=== PATIENT | female | born 1950 | race Caucasian/White ===

== ENCOUNTER 2018-04-28 08:30 | Inpatient (IN) | payer OTHER ==
--- NOTE | 2018-04-28 08:59 | ED ---
Fall HPI - General Chief Complaint: Fall Stated Complaint: fall-[facility] Time Seen by Provider: 04/28/18 08:30 Source: patient Mode of arrival: EMS - History of Present Illness Initial Comments: This is a 67-year-old female who states she slipped on ice and fell onto her right hip just prior to admission. She was brought in by EMS she was given a total of 10 mg morphine sulfate she still has severe pain in the right hip area. She denies any head neck or back pain any other injuries. MD Complaint: fall - Related Data Home Medications Medication Instructions Recorded Confirmed Multivitamins, Thera [Multivitamin 1 tab PO DAILY 04/28/18 04/28/18 (formulary)] Allergies Allergy/AdvReac Type Severity Reaction Status Date / Time No Known Allergies Allergy Unverified 04/28/18 08:50 Review of Systems ROS Statement: Those systems with pertinent positive or pertinent negative responses have been documented in the HPI. ROS Other: All systems not noted in ROS Statement are negative. Past Medical History Past Medical History: No Reported History History of Any Multi-Drug Resistant Organisms: None Reported Past Surgical History: Section Past Psychological History: No Psychological Hx Reported Smoking Status: Former smoker Past Alcohol Use History: Daily Past Drug Use History: None Reported General Exam - General Exam Comments Initial Comments: This a well-developed sec appearing female who is awake alert oriented 3 Bureau Coma Scale of 15 Limitations: no limitations General appearance: alert, anxious, in distress Head exam: Present: atraumatic, normocephalic, normal inspection Eye exam: Present: normal appearance, PERRL, EOMI. Absent: scleral icterus, conjunctival injection, periorbital swelling ENT exam: Present: normal exam, mucous membranes moist Neck exam: Present: normal inspection. Absent: tenderness, meningismus, lymphadenopathy Respiratory exam: Present: normal lung sounds bilaterally. Absent: respiratory distress, wheezes, rales, rhonchi, stridor Cardiovascular Exam: Present: regular rate, normal rhythm, normal heart sounds. Absent: systolic murmur, diastolic murmur, rubs, gallop, clicks GI/Abdominal exam: Present: soft, normal bowel sounds. Absent: distended, tenderness, guarding, rebound, rigid Rectal exam: Present: deferred Extremities exam: Present: normal inspection, tenderness, normal capillary refill, other (Tenderness palpation of the right hip with no definite shortening or rotation.). Absent: full ROM, pedal edema, joint swelling, calf tenderness Back exam: Present: normal inspection Neurological exam: Present: alert, oriented X3, CN II-XII intact Psychiatric exam: Present: normal affect, normal mood Skin exam: Present: warm, dry, intact, normal color. Absent: rash Course Vital Signs 04/28/18 08:36 Temperature 99.0 F Pulse Rate 64 Respiratory 18 Rate Blood Pressure 150/76 O2 Sat by Pulse 93 L Oximetry Medical Decision Making - Medical Decision Making I did discuss findings with the patient as well as with Bambi who is the physician operating room assistant for Dr. Yan patient will be admitted with medical clearance by [facility]. - Radiology Data Radiology results: report reviewed (I did review the images and report or is evidence of displaced femoral neck fracture.), image reviewed Disposition Clinical Impression: Fall, Closed right hip fracture Disposition: ADMITTED IP TO THIS [facility] Condition: Stable Referrals: None,Stated [Primary Care Provider] - 1-2 days
[2018-04-28] MEDS ORDERED: fentaNYL (PF) 50 MCG/ML 2 ML AMP IV STA (09:29)
--- NOTE | 2018-04-28 09:35 | XR ---
EXAMINATION TYPE: XR Hip RT and AP Pelvis DATE OF EXAM: 04/28/2018 COMPARISON: NONE HISTORY: Pain TECHNIQUE: A single AP view of the pelvis is obtained. Two views of the right hip are obtained. FINDINGS: There is a displaced fracture involving the right femoral neck. Arthropathy of the left hi p noted. Bowel gas pattern nonspecific. IMPRESSION: 1. Displaced right femoral neck fracture.
--- NOTE | 2018-04-28 10:08 | XR ---
EXAMINATION TYPE: XR chest 1V DATE OF EXAM: 04/28/2018 COMPARISON: NONE HISTORY: Preop TECHNIQUE: Single frontal view of the chest is obtained. FINDINGS: Hyperinflation compatible COPD. Biapical pleural thickening. No consolidative process. Renée ear density left upper lobe is nonspecific and too small to characterize. No overt failure. Heart siz e normal. IMPRESSION: 1. COPD with biapical pleural thickening. There is a linear density within the left upper lobe which may be related atelectasis or scar. Recommend short-term follow-up CT scan.
[2018-04-28] MEDS ORDERED: NALOXONE 0.4 MG/ML 1 ML VIAL IV PRN (10:16)
--- NOTE | 2018-04-28 10:49 | CT ---
EXAMINATION TYPE: CT hip RT wo con DATE OF EXAM: 04/28/2018 COMPARISON: 04/28/2018 right hip radiograph. HISTORY: Fall with subsequent right hip pain CT DLP: 313.8 mGycm Automated exposure control for dose reduction was used. FINDINGS: There is redemonstration of the known intertrochanteric impacted right femoral fracture that is commi nuted with approximately 2.3 cm foreshortening at the medial fracture site and 1.3 cm distraction at the lateral fracture site. There is displacement of the most posterior fracture fragment 8 mm. There is apex lateral angulation of the primary fracture. Surrounding soft tissue swelling, osseous bone ma rrow abnormality likely related to bone marrow contusion, and fullness of the hip musculature that ma y relate to intramuscular edema or hematoma is seen. A small fat fluid level is seen at the greater t rochanter likely within the bursa from the right hip fracture. The acetabulum and remainder of the ri ght pelvis appear intact. There is at least grade 2 anterolisthesis of L5 on S1, partially visualized . Numerous sigmoid diverticula are also seen. Extensive atheromatous changes of the branches of the a bdominal aorta are noted. IMPRESSION: 1. COMMINUTED, FORESHORTENED, APEX LATERAL ANGULATED INTERTROCHANTERIC RIGHT HIP FRACTURE DESCRIBE D ABOVE WITH LATERAL FRACTURE SITE DISTRACTION. NO ADDITIONAL RIGHT PELVIC FRACTURE IS SEEN. 2. AT LEAST GRADE 2 ANTEROLISTHESIS OF L5 ON S1, PARTIALLY VISUALIZED.
[2018-04-28 11:18] LABS: Basophils % (A) 0 %; Eosinophils # (A) 0.1 k/uL (0-0.7); Eosinophils % (A) 1 %; HCT 38.3 % (34.0-46.0); HGB 12.6 gm/dL (11.4-16.0); Lymphocytes # (A) 1.1 k/uL (1.0-4.8); Lymphocytes % (A) 14 %; MCH 31.3 pg (25.0-35.0); MCHC 32.8 g/dL (31.0-37.0); MCV 95.3 fL (80.0-100.0); Mean Platelet Volume 7.5; Monocytes # (A) 0.4 k/uL (0-1.0); Monocytes % (A) 5 %; Neutrophils # (A) 5.9 k/uL (1.3-7.7); Neutrophils % (A) 78 %; Platelet Count 236 k/uL (150-450); RBC 4.02 m/uL (3.80-5.40); RDW 14.7 % (11.5-15.5); WBC 7.5 k/uL (3.8-10.6)
[2018-04-28] MEDS: HYDROmorphone 1 MG/ML 1 ML SYRINGE IVP PRN ×2 (11:23→15:42)
[2018-04-28] MEDS: SODIUM CHLORIDE 0.9% 1,000 ML IV SCH (11:23)
[2018-04-28 11:31] LABS: ALT 25 U/L (9-52); AST 24 U/L (14-36); Albumin 4.2 g/dL (3.5-5.0); Alkaline Phosphatase 76 U/L (38-126); Anion Gap 9 mmol/L; Blood Urea Nitrogen 17 mg/dL (7-17); Calcium 9.7 mg/dL (8.4-10.2); Carbon Dioxide 24 mmol/L (22-30); Chloride 107 mmol/L (98-107); Glucose 108 mg/dL (74-99); Magnesium 1.8 mg/dL (1.6-2.3); Potassium 4.4 mmol/L (3.5-5.1); Sodium 140 mmol/L (137-145); Total Bilirubin 0.4 mg/dL (0.2-1.3)
[2018-04-28 11:41] LABS: INR 1.1 (<1.2); Partial Thromboplastin Time 24.7 sec (22.0-30.0); Prothrombin Time 11.5 sec (9.0-12.0)
[2018-04-28 11:57] LABS: Creatine Kinase 48 U/L (30-135)
--- NOTE | 2018-04-28 11:57 | P.CONS ---
History of Present Illness - Reason for Consult Consult date: 04/28/18 Medical clearance - Chief Complaint Status post fall - History of Present Illness Patient is 67-year-old female with a known history of smoking quit about 5 years ago was brought to the ER by EMS status post fall. Patient says that she was at the shop and tripped over a wire and fell down on her right hip. Patient has been having severe pain since then and patient was given a dose of morphine sulfate by EMS. Denied any neck pain or headache. Denied any head injury. Denied any complaints of chest pain or shortness of breath. No complaints of dizziness or lightheadedness before or after the fall. No fever no chills. Denied any recent illnesses. No history of renal problems. No recent medical problems. No recent travel or sick contacts. X-ray of the hip showed displaced right femoral neck fracture. Chest x-ray showed COPD with by apical pleural thickening. There is a linear density within the left upper lobe which may be related to atelectasis or scar. Recommend short-term follow-up computed tomography scan. CT of the right hip showed comminuted, foreshortened, apical lateral angular intertrochanteric right hip fracture. No additional right pelvic fracture is seen. At least a grade 2 and 2 listhesis of the L5 on S1 particularly visualized. Review of Systems Constitutional: Patient denies any fever or chills . No generalized weakness or weight loss. Abdomen: Patient denied nausea vomiting and diarrhea and abdominal pain. Cardiovascular: Patient denies any chest pain or short of breath no palpitations. Respiratory: patient denied any cough is from production. No shortness of breath Neurologic: Patient denied any numbness or tingling headache. Musculoskeletal: Right hip pain. Decreased range of motion. Skin: Negative Psychiatric: Anxious Endocrine: No heat or cold intolerance. No recent weight gain. Genitourinary: No dysuria or hematuria. All other 14 point ROS negative except the above Past Medical History Past Medical History: No Reported History History of Any Multi-Drug Resistant Organisms: None Reported Past Surgical History: Section Past Anesthesia/Blood Transfusion Reactions: No Reported Reaction Additional Past Anesthesia/Blood Transfusion Reaction / Comm: Pt has only had a Smoking Status: Former smoker - Past Family History Father History Unknown: Yes Mother Additional Family Medical History / Comment(s): Mother had back surgery and 10 days later she . Medications and Allergies Home Medications Medication Instructions Recorded Confirmed Type Multivitamins, Thera [Multivitamin 1 tab PO DAILY 04/28/18 04/28/18 History (formulary)] Allergies Allergy/AdvReac Type Severity Reaction Status Date / Time No Known Allergies Allergy Unverified 04/28/18 08:50 Physical Exam Vitals: Vital Signs Temp Pulse Resp BP Pulse Ox 04/28/18 11:06 99.0 F 61 18 145/64 94 L 04/28/18 10:57 61 18 145/64 94 L 04/28/18 08:36 99.0 F 64 18 150/76 93 L Intake and Output 04/27/18 04/28/18 04/28/18 22:59 06:59 14:59 Other: Weight 54.431 kg PHYSICAL EXAMINATION: Patient is lying in the bed comfortably, no acute distress, awake alert and oriented.. HEENT: Normocephalic. Neck is supple. Pupils reactive. Nostrils clear. Oral cavity is moist. Ears reveal no drainage. Neck reveals no JVD, carotid bruits, or thyromegaly. CHEST EXAMINATION: Trachea is central. Symmetrical expansion. Bilateral air movement is present but prolonged. No wheezing. No crackles. CARDIAC: Normal S1, S2 with no gallops. No murmurs ABDOMEN: Soft. Bowel sounds normal. No organomegaly. No abdominal bruits. Extremities: reveal no edema. Patient does have clubbing of fingers. No cyanosis Neurologically awake, alert, oriented x3 with well-coordinated movements. No focal deficits noted Skin: No rash or skin lesions. Psychiatric: Coperative. Nonsuicidal. Anxious. Musculoskeletal: Right hip tenderness and decreased range of motion. Patient does have proximal metacarpophalangeal joint arthritic changes.. Results Results: Status post mechanical fall and right hip CBC & Chem 7: 04/28/18 10:50 04/28/18 10:50 Labs: Abnormal Lab Results - Last 24 Hours (Table) 04/28/18 Range/Units 10:50 Creatinine 0.51 L (0.52-1.04) mg/dL Glucose 108 H (74-99) mg/dL Assessment and Plan Assessment: Status post mechanical fall and right femoral neck fracture. Displaced, committed right femoral neck fracture. Possible COPD. No history of pulmonary function tests in the past. Not in exacerbation. Elevated blood pressure likely due to pain. Follow-up as an outpatient. Linear density in the left lung upper lobe. Outpatient follow-up with pulmonary was recommended. History of smoking quit 5 years ago DVT prophylaxis Plan: 67-year-old female was admitted to the hospital due to mechanical fall and right femoral neck fracture. No active complaints of chest pain or shortness of breath. No history of CVA/TIA or chronic kidney disease. Patient does not have any shortness of breath with ambulation. Quit smoking about 5 years ago. Patient does have underlying COPD as per chest x-ray.. Otherwise patient is at low risk for low risk orthopedic surgery. We will continue to follow with you. Thank you for your consult. Time with Patient: Greater than 30
[2018-04-28 12:10] LABS: Creatine Kinase MB 1.2 ng/mL (0.0-2.4); Troponin I <0.012 ng/mL (0.000-0.034)
[2018-04-28] MEDS: ONDANSETRON 4 MG/2 ML VIAL IVP PRN (13:09)
[2018-04-28] MEDS: HEPARIN SODIUM,PORCINE 5,000 UNIT/ML 1 ML VIAL SQ SCH ×2 (15:41→15:48)
[2018-04-28] MEDS: MORPHINE SULFATE 4 MG/ML SYRINGE IVP PRN (19:47)
[2018-04-28] MEDS: METOCLOPRAMIDE 5 MG/ML 2 ML VIAL IVP PRN (19:54)
--- NOTE | 2018-04-28 19:59 | P.HPOR ---
History of Present Illness H&P Date: 04/28/18 Chief Complaint: Right hip pain status-post fall Ms. Boyd is a pleasant, 67-year-old female who experienced a mechanical fall earlier today while at work. She states she tripped over an electrical cord and fell onto her right side. She was brought to the emergency department at [facility] where x-rays were obtained which revealed a fracture of the right hip. She localizes the pain to the right hip and denies other injuries associated with this fall nor previous injury to the hip. She denies head trauma or loss of consciousness. She lives alone and normally ambulates without the use of assistive devices. Review of Systems Constitutional: Denies chills, Denies fever Eyes: denies loss of vision Ears: deny: decreased hearing Cardiovascular: Denies chest pain, Denies shortness of breath Respiratory: Reports cough (Prior emphysema - uses an inhaler occasionally (but rarely).) Gastrointestinal: Denies abdominal pain Genitourinary: Denies difficulty voiding Musculoskeletal: Reports as per HPI, Denies frequent falls, Denies leg numbness/ tingling Integumentary: Denies rash Neurological: Denies balance difficulties, Denies sensory deficit Endocrine: Denies high blood sugars Hematologic/Lymphatic: Denies easy bleeding Past Medical History Past Medical History: No Reported History History of Any Multi-Drug Resistant Organisms: None Reported Past Surgical History: Section Past Anesthesia/Blood Transfusion Reactions: No Reported Reaction Additional Past Anesthesia/Blood Transfusion Reaction / Comment(s): Pt has only had a Smoking Status: Former smoker - Past Family History Father History Unknown: Yes Mother Additional Family Medical History / Comment(s): Mother had back surgery and 10 days later she . Medications and Allergies Home Medications Medication Instructions Recorded Confirmed Type Multivitamins, Thera [Multivitamin 1 tab PO DAILY 04/28/18 04/28/18 History (formulary)] Allergies Allergy/AdvReac Type Severity Reaction Status Date / Time No Known Allergies Allergy Unverified 04/28/18 08:50 Physical Examination HEENT: Normocephalic and atraumatic. Cardiovascular: Regular rate and rhythm. Pulmonary: No audible wheeze or conversational dyspnea Abdomen: Soft & nontender Musculoskeletal: Moderate tenderness to palpation on the lateral aspect of the right hip. There is no erythema, ecchymosis or abrasions. The right lower extremity is short and externally rotated. She demonstrates pain with logroll. There is no tenderness with palpation of the knee, leg, foot or ankle. Light touch sensation is subjectively intact throughout the right leg and symmetric to the contralateral side. Dorsalis pedis pulses 2+ and the foot is warm dry and well perfused. Secondary survey reveals no gross long bone abnormalities or deformity. No tenderness to palpation or passive range of motion of the left lower extremity and bilateral upper extremities. The pelvis is stable to AP and lateral compression. Results X-rays and computed tomography scan of the right hip were reviewed. These demonstrate a displaced intertrochanteric femur fracture with a moderately large posteromedial fragment. Mild comminution of the greater trochanter is noted. The primary fracture line extends to the level of the lesser trochanter. - Labs Labs: Abnormal Lab Results - Last 24 Hours (Table) 04/28/18 Range/Units 10:50 Creatinine 0.51 L (0.52-1.04) mg/dL Glucose 108 H (74-99) mg/dL H & H 04/28/18 Range/Units 10:50 Hgb 12.6 (11.4-16.0) gm/dL Hct 38.3 (34.0-46.0) % Coagulation 04/28/18 Range/Units 10:50 INR 1.1 (<1.2) Result Diagrams: 04/28/18 10:50 04/28/18 10:50 Assessment and Plan Assessment: Displaced, right intertrochanteric femur fracture (1) Intertrochanteric fracture of right hip Current Visit: Yes Status: Acute Code(s): S72.141A - DISPLACED INTERTROCHANTERIC FRACTURE OF RIGHT FEMUR, INIT SNOMED Code(s): 392688175 (2) Fall Current Visit: Yes Status: Acute Code(s): W19.XXXA - UNSPECIFIED FALL, INITIAL ENCOUNTER SNOMED Code(s): 4339160 Plan: I reviewed the diagnosis and clinical findings with Mrs. Boyd. We discussed the pertinent anatomy of the fracture. I explained that this fracture is best treated with operative intervention and I recommended surgical stabilization with a cephalomedullary nail. We discussed the operative plan and expected postoperative course. Risks and benefits were reviewed including (but not limited to) the risks of bleeding, infection, wound healing problems, blood clots, anesthesia related complications and . Questions were invited and answered. She expressed understanding and wishes to proceed with surgery. We will continue with oral and IV analgesics as needed. She will be kept on bedrest and placed on DVT prophylaxis. The patient will be made NPO after midnight with the plan for surgical stabilization tomorrow.
[2018-04-28] MEDS: FAMOTIDINE 20 MG TAB PO SCH (20:01)
[2018-04-28 20:24] LABS: Appearance,Urine Clear (Clear); Bilirubin,Urine Negative (Negative); Blood,Urine Negative (Negative); Color,Urine Yellow; Glucose,Urine (UA) Negative (Negative); Ketones,Urine 1+ (Negative); Leukocyte Esterase,Urine Negative (Negative); Nitrite,Urine Negative (Negative); Protein,Urine Negative (Negative); Specific Gravity,Urine 1.015 (1.001-1.035); Urobilinogen,Urine <2.0 mg/dL (<2.0)
[2018-04-29] MEDS: MORPHINE SULFATE 4 MG/ML SYRINGE IVP PRN ×4 (00:09→11:50)
[2018-04-29] MEDS: FAMOTIDINE 20 MG TAB PO SCH ×2 (08:21→19:55)
[2018-04-29] MEDS: MULTIVITAMINS, THERA 1 EACH TAB PO SCH (08:21)
[2018-04-29] MEDS: SODIUM CHLORIDE 0.9% 1,000 ML IV SCH (11:53)
[2018-04-29] MEDS ORDERED: IV FLUID CONTINUATION 650 ML IV ONE (12:21)
[2018-04-29] MEDS: ONDANSETRON 4 MG/2 ML VIAL IVP PRN (12:41)
[2018-04-29] MEDS ORDERED: ceFAZolin IN SWFI 2 GM/20 ML SYRINGE IVP ONE (13:00)
[2018-04-29] MEDS ORDERED: PROPOFOL 10 MG/ML 20 ML VIAL IV ONE (13:58)
[2018-04-29] MEDS ORDERED: KETAMINE 10 MG/ML 20 ML VIAL ONE (13:58)
[2018-04-29] MEDS ORDERED: fentaNYL (PF) 50 MCG/ML 2 ML AMP ONE (13:58)
[2018-04-29] MEDS ORDERED: MIDAZOLAM 2 MG/2 ML VIAL ONE (13:58)
[2018-04-29] MEDS ORDERED: PHENYLEPHRINE-0.9% NACL SYG 1 MG/10 ML SYRINGE ONE (13:58)
[2018-04-29] MEDS ORDERED: LACTATED RINGERS 1,000 ML IV ONE ×2 (14:39)
[2018-04-29] MEDS ORDERED: BUPIVACAINE-EPI 0.5%-1:200,000 10 ML VIAL SQ ONE (15:39)
--- NOTE | 2018-04-29 15:44 | XR ---
Limited right hip HISTORY: Hardware placement, open reduction internal fixation right hip 2 intraoperative views of the right hip submitted documenting the procedure.
--- NOTE | 2018-04-29 15:49 | FL ---
Fluoroscopy HISTORY: Hip fracture 1 minute 49 seconds fluoroscopy time supplied to the referring clinician. 2 intraoperative C-arm jorge l ges document the procedure. See dictated report from orthopedic surgery.
[2018-04-29 16:24] VITALS: BMI 18.8
[2018-04-29 18:24] LABS: Basophils % (A) 0 %; Eosinophils % (A) 1 %; HCT 34.1 % (34.0-46.0); HGB 11.2 gm/dL (11.4-16.0); Lymphocytes # (A) 1.2 k/uL (1.0-4.8); Lymphocytes % (A) 14 %; MCH 32.4 pg (25.0-35.0); MCHC 32.8 g/dL (31.0-37.0); MCV 98.9 fL (80.0-100.0); Mean Platelet Volume 7.8; Monocytes # (A) 0.7 k/uL (0-1.0); Monocytes % (A) 8 %; Neutrophils # (A) 6.4 k/uL (1.3-7.7); Neutrophils % (A) 75 %; Platelet Count 186 k/uL (150-450); RBC 3.45 m/uL (3.80-5.40); RDW 14.6 % (11.5-15.5); WBC 8.5 k/uL (3.8-10.6)
--- NOTE | 2018-04-29 19:49 | XR ---
EXAMINATION TYPE: XR Hip Limited RT DATE OF EXAM: 04/29/2018 COMPARISON: 04/28/2018 HISTORY: Postop TECHNIQUE: Single view FINDINGS: There is right hip nailing fixing the intertrochanteric fracture right femur in anatomic po sition. IMPRESSION: No complicating process seen.
[2018-04-29] MEDS: ceFAZolin IN SWFI 2 GM/20 ML SYRINGE IVP SCH (22:45)
[2018-04-30 07:12] LABS: Glucose,Whole Blood 88 mg/dL (75-99)
[2018-04-30] MEDS: ONDANSETRON 4 MG/2 ML VIAL IVP PRN (07:28)
[2018-04-30] MEDS: ceFAZolin IN SWFI 2 GM/20 ML SYRINGE IVP SCH (09:07)
[2018-04-30] MEDS: FAMOTIDINE 20 MG TAB PO SCH ×2 (10:49→21:13)
[2018-04-30] MEDS: METOCLOPRAMIDE 5 MG/ML 2 ML VIAL IVP PRN (10:49)
[2018-04-30] MEDS: ENOXAPARIN 40 MG/0.4 ML SYRINGE SQ SCH (10:49)
[2018-04-30] MEDS: SODIUM CHLORIDE 0.9% 1,000 ML IV SCH (21:13)
[2018-04-30] MEDS: MULTIVITAMINS, THERA 1 EACH TAB PO SCH (21:13)
--- NOTE | 2018-04-30 21:44 | P.PN ---
<RajanRyan - Last Filed: 04/30/18 21:42> Subjective Progress Note Date: 04/30/18 Principal diagnosis: Right IT fracture Patient is seen at bedside this morning. She is postop day #1 from right IT nail for right IT fracture. She has pain at the surgical site as expected but denies any new complaints. She denies numbness, tingling or calf pain. Review of systems is negative for fever, chills, chest pain, shortness of breath or other Objective - Vital Signs Vital signs: Vital Signs Temp 98.6 F 04/30/18 19:50 Pulse 79 04/30/18 19:50 Resp 18 04/30/18 19:50 BP 104/63 04/30/18 19:50 Pulse Ox 96 04/30/18 19:50 Intake & Output 04/30/18 04/30/18 05/01/18 06:59 18:59 06:59 Intake Total 60 Output Total 400 Balance -340 Intake: Intake, IV Titration 60 Amount Sodium Chloride 0.9% 1, 60 000 ml @ 20 mls/hr IV . Q24H [facility] Rx#:[id number] Output: Urine 400 Other: Voiding Method Indwelling Catheter Indwelling Catheter - Exam Inspection reveals a benign surgical wound. There is no active bleeding or drainage. Neurovascular status is intact throughout the lower extremity with motor and sensation fully intact. Calf is soft and nontender. 2+ dorsalis pedis pulse and less than 2 second cap refill is present. - Constitutional General appearance: Present: no acute distress - Labs CBC & Chem 7: 04/29/18 17:28 04/28/18 10:50 Assessment and Plan (1) Intertrochanteric fracture of right hip Narrative/Plan: She will continue with routine postop orthopedic protocol including pain management, wound care, PT, DVT prophylaxis and medical management. Expect that she will transfer to home in next few days. Current Visit: Yes Status: Acute Code(s): S72.141A - DISPLACED INTERTROCHANTERIC FRACTURE OF RIGHT FEMUR, INIT SNOMED Code(s): 368697594 Time with Patient: Less than 30 <Jj Yan - Last Filed: 05/01/18 20:49> Objective - Vital Signs Vital signs: Vital Signs Temp 98.4 F 05/01/18 19:25 Pulse 88 05/01/18 19:25 Resp 18 05/01/18 19:25 BP 97/61 05/01/18 19:25 Pulse Ox 94 L 05/01/18 19:25 Intake & Output 05/01/18 05/01/18 05/02/18 06:59 18:59 06:59 Intake Total 940 Output Total 700 200 Balance 240 -200 Intake: Intake, IV Titration 200 Amount Sodium Chloride 0.9% 1, 200 000 ml @ 20 mls/hr IV . Q24H [facility] Rx#:[id number] Oral 740 Output: Urine 700 200 Uretheral (Candelaria) 700 200 Other: Voiding Method Indwelling Catheter Indwelling Catheter # Voids 1 - Labs CBC & Chem 7: 05/01/18 13:27 04/28/18 10:50 Labs: Abnormal Lab Results - Last 24 Hours (Table) 05/01/18 Range/Units 13:27 RBC 3.30 L (3.80-5.40) m/uL Hgb 10.3 L (11.4-16.0) gm/dL Hct 32.1 L (34.0-46.0) % Assessment and Plan (1) Intertrochanteric fracture of right hip Current Visit: Yes Status: Acute Priority: Medium Code(s): S72.141A - DISPLACED INTERTROCHANTERIC FRACTURE OF RIGHT FEMUR, INIT SNOMED Code(s): 381419535 (2) Fall Current Visit: Yes Status: Acute Code(s): W19.XXXA - UNSPECIFIED FALL, INITIAL ENCOUNTER SNOMED Code(s): 6763625 Plan: Reviewed and agree with above. Patient was also subsequently seen and examined by me. S: Patient reports minimal postop pain - says she's hardly need any pain medicine. Was up with PT - was able to WB on operative leg without difficulty. Denies new issues or concerns. PE - RLE: Dressings clean/dry/intact. No shadowing. Minimal/appropriate pain with logroll. Intact light touch sensation distally. +DF/PF. Calf soft/NT. Foot is warm and dry Assessment: Right IT fracture s/p IMN Plan: Continue PRN pain managment. DVT prophylaxis w/LMWH. DC candelaria. PT - WBAT w/ rolling walker and assist. Discharge planning. Jj Yan D.O.
--- NOTE | 2018-04-30 22:04 | P.OP ---
Date of Procedure: 04/29/18 Preoperative Diagnosis: Right intertrochanteric femur fracture Postoperative Diagnosis: Right intertrochanteric femur fracture Procedure(s) Performed: Closed reduction and internal fixation of right intertrochanteric femur fracture with cephalomedullary nail Implants: Synthes TFN short 11 mm nail, 130 degree with an 85 mm spiral blade and a 5 mm distal locking screw. Anesthesia: spinal Surgeon: Jj Yan Estimated Blood Loss (ml): 50 Pathology: none sent Condition: stable Disposition: PACU Indications for Procedure: The patient is a 67 -year-old female who sustained a ground-level fall which resulted in a displaced right intertrochanteric femur fracture. Operative treatment was recommended. Risks & benefits were discussed including (but not limited to) the risk of infection, bleeding, injury to vessels/nerves/adjacent structures, interoperative fracture, nonunion, malunion, painful hardware & need for additional surgery. Patient's questions were answered. Patient expressed understanding and wished to proceed with surgical fixation of the fracture. Description of Procedure: After informed consent was obtained, the patient was brought to the operative suite by the anesthesia team and spinal anesthesia was administered. The patient was then transferred to a fracture table and positioned supine with the operative limb in a well-padded boot, secured with coban. The contralateral limb was flexed, abducted and secured to a padded, well-leg krueger. All bony prominences were padded in the typical fashion. A time-out was performed to confirm patient identifiers, side, site and procedure. All team members expressed agreement. The fracture was manually reduced (and confirmed with orthogonal fluoroscopy images). Preoperative antibiotics were given. At this point, the right lower extremity was prepped and draped in a sterile fashion. A small stab incision was made proximal to the greater trochanter and a guidewire inserted. Fluoroscopy was used to localize the starting point at the tip of the greater trochanter and the wire was advanced into the proximal femur. The skin incision was extended to accommodate the entry reamer which was inserted through a tissue protector and advanced to the level of the lesser trochanter. The reamer and guidewire were removed. Based on preoperative radiographs & intraoperative fracture reduction, an 11 mm x 130 degree short nail was selected, attached to the insertion handle and passed down the medullary canal. An incision was made laterally along the proximal thigh for placement of the cephalomedullary spiral blade. A drill sleeve was inserted down to the lateral femoral cortex. A guidewire was advanced through the nail and into the femoral head. Position of the wire within the head was checked on orthogonal views and adjusted to satisfactory alignment. Measuring off the guidewire, an 85 mm spiral blade was selected and inserted to the appropriate depth. The set screw was tightened to lock the blade in place then loosened enough to allow dynamic compression at the fracture site. Manual compression was applied through the insertion cannula. Compression at the fracture site was confirmed on imaging. Another incision was made for insertion of the distal locking screw. The drill sleeve was advanced to the lateral femoral cortex. The bone was drilled, measured and a 5 mm distal cortical screw was inserted. The jig was removed. Final x-rays were taken to confirm final fracture reduction and implant position. All wounds were irrigated thoroughly. The wounds were closed in layers : the fascia with 0-Vicryl, the subcutaneous tissue with 2-0 Vicryl and the skin closed with pierre. The incision sites were injected with local anaesthetic with epinephrine for postoperative pain control and hemostasis. Sterile dressings were applied. All sponge & needle counts were correct at the end of the procedure. The patient tolerated the procedure well. She was transferred to a hospital bed and transported to the PACU in stable condition.
[2018-05-01] MEDS: MULTIVITAMINS, THERA 1 EACH TAB PO SCH (09:36)
[2018-05-01] MEDS: FAMOTIDINE 20 MG TAB PO SCH ×2 (09:36→20:17)
[2018-05-01] MEDS: HYDROcodone/APAP 5-325MG 1 EACH TAB PO PRN ×2 (09:36→21:09)
[2018-05-01] MEDS: ENOXAPARIN 40 MG/0.4 ML SYRINGE SQ SCH (09:36)
[2018-05-01] MEDS: SODIUM CHLORIDE 0.9% 1,000 ML IV SCH (12:20)
--- NOTE | 2018-05-01 13:09 | P.PN ---
<RajanRyan - Last Filed: 05/01/18 13:08> Subjective Progress Note Date: 05/01/18 Principal diagnosis: Right IT fracture Patient is seen at bedside this morning. She is postop day #2 from right IT nail for right IT fracture. She has pain at the surgical site as expected but denies any new complaints. She denies numbness, tingling or calf pain. Review of systems is negative for fever, chills, chest pain, shortness of breath or other Objective - Vital Signs Vital signs: Vital Signs Temp 98.4 F 05/01/18 07:40 Pulse 78 05/01/18 07:40 Resp 16 05/01/18 07:40 BP 112/56 05/01/18 07:40 Pulse Ox 98 05/01/18 07:40 Intake & Output 04/30/18 05/01/18 05/01/18 18:59 06:59 18:59 Intake Total 940 Output Total 700 Balance 240 Intake: Intake, IV Titration 200 Amount Sodium Chloride 0.9% 1, 200 000 ml @ 20 mls/hr IV . Q24H [facility] Rx#:[id number] Oral 740 Output: Urine 700 Uretheral (Hernandez) 700 Other: Voiding Method Indwelling Catheter Indwelling Catheter Indwelling Catheter - Exam Inspection reveals a benign surgical wound. There is no active bleeding or drainage. Neurovascular status is intact throughout the lower extremity with motor and sensation fully intact. Calf is soft and nontender. 2+ dorsalis pedis pulse and less than 2 second cap refill is present. - Constitutional General appearance: Present: no acute distress - Labs CBC & Chem 7: 04/29/18 17:28 04/28/18 10:50 Assessment and Plan (1) Intertrochanteric fracture of right hip Narrative/Plan: She will continue with routine postop orthopedic protocol including pain management, wound care, PT, DVT prophylaxis and medical management. Expect that she will transfer to home in next few days. Current Visit: Yes Status: Acute Priority: Medium Code(s): S72.141A - DISPLACED INTERTROCHANTERIC FRACTURE OF RIGHT FEMUR, INIT SNOMED Code(s): 730027330 Time with Patient: Less than 30 <Jj Yan - Last Filed: 05/01/18 21:16> Objective - Vital Signs Vital signs: Vital Signs Temp 98.4 F 05/01/18 19:25 Pulse 88 05/01/18 19:25 Resp 18 05/01/18 19:25 BP 97/61 05/01/18 19:25 Pulse Ox 94 L 05/01/18 19:25 Intake & Output 05/01/18 05/01/18 05/02/18 06:59 18:59 06:59 Intake Total 940 Output Total 700 200 Balance 240 -200 Intake: Intake, IV Titration 200 Amount Sodium Chloride 0.9% 1, 200 000 ml @ 20 mls/hr IV . Q24H [facility] Rx#:[id number] Oral 740 Output: Urine 700 200 Uretheral (Hernandez) 700 200 Other: Voiding Method Indwelling Catheter Indwelling Catheter # Voids 1 - Labs CBC & Chem 7: 05/01/18 13:27 04/28/18 10:50 Labs: Abnormal Lab Results - Last 24 Hours (Table) 05/01/18 Range/Units 13:27 RBC 3.30 L (3.80-5.40) m/uL Hgb 10.3 L (11.4-16.0) gm/dL Hct 32.1 L (34.0-46.0) % Assessment and Plan (1) Intertrochanteric fracture of right hip Current Visit: Yes Status: Acute Priority: Medium Code(s): S72.141A - DISPLACED INTERTROCHANTERIC FRACTURE OF RIGHT FEMUR, INIT SNOMED Code(s): 224635925 (2) Fall Current Visit: Yes Status: Acute Code(s): W19.XXXA - UNSPECIFIED FALL, INITIAL ENCOUNTER SNOMED Code(s): 6327614 Plan: Reviewed and agree with above. Patient was also subsequently seen and examined by me. S: Patient reports pain is well-controlled. Walked to hallway w/PT. Denies fever/ chills/N/V. O: PE - RLE: Dressings clean/dry/intact. Appropriate TTP No ecchymosis. Calf soft. Foot warm & well-perfused PT: 10' A: POD #2 s/p IMN - Right IT fracture Plan: Continue PT - WBAT w/rolling walker and assist. DVT prophylaxis w/[facility]. Discharge planning in progress - likely DC home tomorrow once final arrangements made. Jj Yan D.O.
[2018-05-01 13:46] LABS: Basophils % (A) 0 %; Eosinophils # (A) 0.1 k/uL (0-0.7); Eosinophils % (A) 1 %; HCT 32.1 % (34.0-46.0); HGB 10.3 gm/dL (11.4-16.0); Lymphocytes % (A) 12 %; MCH 31.2 pg (25.0-35.0); MCV 97.4 fL (80.0-100.0); Mean Platelet Volume 7.9; Monocytes # (A) 0.5 k/uL (0-1.0); Monocytes % (A) 7 %; Neutrophils # (A) 6.6 k/uL (1.3-7.7); Neutrophils % (A) 79 %; Platelet Count 197 k/uL (150-450); WBC 8.4 k/uL (3.8-10.6)
[2018-05-01] MEDS: ONDANSETRON 4 MG/2 ML VIAL IVP PRN (17:18)
--- NOTE | 2018-05-01 23:13 | P.PN ---
Subjective Progress Note Date: 04/29/18 Principal diagnosis: right femoral neck fracture status post IM nail Patient is 67-year-old female with a known history of smoking quit about 5 years ago was brought to the ER by EMS status post fall. Patient says that she was at the shop and tripped over a wire and fell down on her right hip. Patient has been having severe pain since then and patient was given a dose of morphine sulfate by EMS. Denied any neck pain or headache. Denied any head injury. Denied any complaints of chest pain or shortness of breath. No complaints of dizziness or lightheadedness before or after the fall. No fever no chills. Denied any recent illnesses. No history of renal problems. No recent medical problems. No recent travel or sick contacts. X-ray of the hip showed displaced right femoral neck fracture. Chest x-ray showed COPD with by apical pleural thickening. There is a linear density within the left upper lobe which may be related to atelectasis or scar. Recommend short-term follow-up computed tomography scan. CT of the right hip showed comminuted, foreshortened, apical lateral angular intertrochanteric right hip fracture. No additional right pelvic fracture is seen. At least a grade 2 and 2 listhesis of the L5 on S1 particularly visualized. 04/29/2018 Patient underwent closed reduction with IM nailing today. Currently seems very drowsy. Otherwise denied any chest pain or shortness of breath. Pain is fairly controlled. No fever no chills. Current medications reviewed. Objective - Vital Signs Vital signs: Vital Signs Temp 99.5 F 04/29/18 12:27 Pulse 81 04/29/18 12:27 Resp 16 04/29/18 12:27 BP 132/79 04/29/18 12:27 Pulse Ox 92 L 04/29/18 12:27 Intake & Output 04/28/18 04/29/18 04/29/18 18:59 06:59 18:59 Intake Total 982 043 6349 Output Total 650 450 Balance 880 -490 600 Weight 54.431 kg Intake: IV 1050 Intake, IV Titration 80 160 Amount Sodium Chloride 0.9% 1, 80 000 ml @ 20 mls/hr IV . Q24H [facility] Rx#:[id number] ceFAZolin 2 gm In Sodium 160 Chloride 0.9% 50 ml @ 100 mls/hr IVPB ONCE ONE Rx# :[id number] Oral 800 Output: Urine 650 400 Estimated Blood Loss 50 Other: Voiding Method Bedpan Indwelling Catheter - Exam PHYSICAL EXAMINATION: Patient is lying in the bed comfortably, no acute distress, awake alert and oriented.. HEENT: Normocephalic. Neck is supple. Pupils reactive. Nostrils clear. Oral cavity is moist. Ears reveal no drainage. Neck reveals no JVD, carotid bruits, or thyromegaly. CHEST EXAMINATION: Trachea is central. Symmetrical expansion. Lung gomes clear to auscultation and percussion. CARDIAC: Normal S1, S2 with no gallops. No murmurs ABDOMEN: Soft. Bowel sounds normal. No organomegaly. No abdominal bruits. Extremities: reveal no edema. No clubbing or cyanosis Neurologically awake, alert, oriented x3 with well-coordinated movements. No focal deficits noted Skin: No rash or skin lesions. Psychiatric: Coperative. Nonsuicidal Musculoskeletal: No joint swelling or deformity. . - Labs CBC & Chem 7: 05/01/18 13:27 04/28/18 10:50 Labs: Abnormal Lab Results - Last 24 Hours (Table) 04/28/18 Range/Units 20:13 Urine Ketones 1+ H (Negative) Assessment and Plan Assessment: mechanical fall and right femoral neck fracture status post closed reduction with IM nail on 04/29/2018. Displaced, committed right femoral neck fracture. Possible COPD. No history of pulmonary function tests in the past. Not in exacerbation. Elevated blood pressure likely due to pain. Follow-up as an outpatient. Linear density in the left lung upper lobe. Outpatient follow-up with pulmonary was recommended. History of smoking quit 5 years ago DVT prophylaxis Plan: Patient will be continued on pain medications and bowel regimen. Encourage ambulation and incentive spirometry. Otherwise we'll continue the current management and follow closely. Further recommendations based on the clinical course. We will continue to follow with you. Time with Patient: Greater than 30
--- NOTE | 2018-05-01 23:15 | P.PN ---
Subjective Progress Note Date: 04/30/18 Principal diagnosis: right femoral neck fracture status post IM nail Patient is 67-year-old female with a known history of smoking quit about 5 years ago was brought to the ER by EMS status post fall. Patient says that she was at the shop and tripped over a wire and fell down on her right hip. Patient has been having severe pain since then and patient was given a dose of morphine sulfate by EMS. Denied any neck pain or headache. Denied any head injury. Denied any complaints of chest pain or shortness of breath. No complaints of dizziness or lightheadedness before or after the fall. No fever no chills. Denied any recent illnesses. No history of renal problems. No recent medical problems. No recent travel or sick contacts. X-ray of the hip showed displaced right femoral neck fracture. Chest x-ray showed COPD with by apical pleural thickening. There is a linear density within the left upper lobe which may be related to atelectasis or scar. Recommend short-term follow-up computed tomography scan. CT of the right hip showed comminuted, foreshortened, apical lateral angular intertrochanteric right hip fracture. No additional right pelvic fracture is seen. At least a grade 2 and 2 listhesis of the L5 on S1 particularly visualized. 04/29/2018 Patient underwent closed reduction with IM nailing today. Currently seems very drowsy. Otherwise denied any chest pain or shortness of breath. Pain is fairly controlled. No fever no chills. 04/30/2018 Patient says that his pain is fairly controlled. Was able to ambulate with support. No fever no chills. No headache or dizziness or lightheadedness. Hernandez catheter has been discontinued. Continued on PT OT Current medications reviewed. Objective - Vital Signs Vital signs: Vital Signs Temp 98.4 F 05/01/18 07:40 Pulse 78 05/01/18 07:40 Resp 16 05/01/18 07:40 BP 112/56 05/01/18 07:40 Pulse Ox 98 05/01/18 07:40 Intake & Output 04/30/18 05/01/18 05/01/18 18:59 06:59 18:59 Intake Total 940 Output Total 700 Balance 240 Intake: Intake, IV Titration 200 Amount Sodium Chloride 0.9% 1, 200 000 ml @ 20 mls/hr IV . Q24H [facility] Rx#:[id number] Oral 740 Output: Urine 700 Uretheral (Hernandez) 700 Other: Voiding Method Indwelling Catheter Indwelling Catheter Indwelling Catheter - Exam PHYSICAL EXAMINATION: Patient is lying in the bed comfortably, no acute distress, awake alert and oriented.. HEENT: Normocephalic. Neck is supple. Pupils reactive. Nostrils clear. Oral cavity is moist. Ears reveal no drainage. Neck reveals no JVD, carotid bruits, or thyromegaly. CHEST EXAMINATION: Trachea is central. Symmetrical expansion. Lung gomes clear to auscultation and percussion. CARDIAC: Normal S1, S2 with no gallops. No murmurs ABDOMEN: Soft. Bowel sounds normal. No organomegaly. No abdominal bruits. Extremities: reveal no edema. No clubbing or cyanosis Neurologically awake, alert, oriented x3 with well-coordinated movements. No focal deficits noted Skin: No rash or skin lesions. Psychiatric: Coperative. Nonsuicidal Musculoskeletal: No joint swelling or deformity. . - Labs CBC & Chem 7: 05/01/18 13:27 04/28/18 10:50 Assessment and Plan Assessment: mechanical fall and right femoral neck fracture status post closed reduction with IM nail on 04/29/2018. Displaced, committed right femoral neck fracture. Possible COPD. No history of pulmonary function tests in the past. Not in exacerbation. Elevated blood pressure likely due to pain. Follow-up as an outpatient. Linear density in the left lung upper lobe. Outpatient follow-up with pulmonary was recommended. History of smoking quit 5 years ago DVT prophylaxis Plan: Patient will be continued on pain medications and bowel regimen. Encourage ambulation and incentive spirometry. Otherwise we'll continue the current management and follow closely. Further recommendations based on the clinical course. We will continue to follow with you.
--- NOTE | 2018-05-01 23:16 | P.PN ---
Subjective Progress Note Date: 05/01/18 Principal diagnosis: right femoral neck fracture status post IM nail Patient is 67-year-old female with a known history of smoking quit about 5 years ago was brought to the ER by EMS status post fall. Patient says that she was at the shop and tripped over a wire and fell down on her right hip. Patient has been having severe pain since then and patient was given a dose of morphine sulfate by EMS. Denied any neck pain or headache. Denied any head injury. Denied any complaints of chest pain or shortness of breath. No complaints of dizziness or lightheadedness before or after the fall. No fever no chills. Denied any recent illnesses. No history of renal problems. No recent medical problems. No recent travel or sick contacts. X-ray of the hip showed displaced right femoral neck fracture. Chest x-ray showed COPD with by apical pleural thickening. There is a linear density within the left upper lobe which may be related to atelectasis or scar. Recommend short-term follow-up computed tomography scan. CT of the right hip showed comminuted, foreshortened, apical lateral angular intertrochanteric right hip fracture. No additional right pelvic fracture is seen. At least a grade 2 and 2 listhesis of the L5 on S1 particularly visualized. 04/29/2018 Patient underwent closed reduction with IM nailing today. Currently seems very drowsy. Otherwise denied any chest pain or shortness of breath. Pain is fairly controlled. No fever no chills. 04/30/2018 Patient says that his pain is fairly controlled. Was able to ambulate with support. No fever no chills. No headache or dizziness or lightheadedness. Hernandez catheter has been discontinued. Continued on PT OT 05/01/2018 Patient denied any new complaints today. Was able to ambulating support. Continued on PT OT. No complaints of fever or chills. Feels better today otherwise. No nausea vomiting or abdominal pain. Tolerating oral diet. No cough is from production. No headache or dizziness or worsening pain. Current medications reviewed. Objective - Vital Signs Vital signs: Vital Signs Temp 98.4 F 05/01/18 19:25 Pulse 88 05/01/18 19:25 Resp 18 05/01/18 19:25 BP 97/61 05/01/18 19:25 Pulse Ox 94 L 01/27/19 19:25 Intake & Output 05/01/18 05/01/18 05/02/18 06:59 18:59 06:59 Intake Total 940 Output Total 700 200 Balance 240 -200 Intake: Intake, IV Titration 200 Amount Sodium Chloride 0.9% 1, 200 000 ml @ 20 mls/hr IV . Q24H [facility] Rx#:[id number] Oral 740 Output: Urine 700 200 Uretheral (Hernandez) 700 200 Other: Voiding Method Indwelling Catheter Indwelling Catheter Toilet # Voids 1 1 - Exam PHYSICAL EXAMINATION: Patient is lying in the bed comfortably, no acute distress, awake alert and oriented.. HEENT: Normocephalic. Neck is supple. Pupils reactive. Nostrils clear. Oral cavity is moist. Ears reveal no drainage. Neck reveals no JVD, carotid bruits, or thyromegaly. CHEST EXAMINATION: Trachea is central. Symmetrical expansion. Lung gomes clear to auscultation and percussion. CARDIAC: Normal S1, S2 with no gallops. No murmurs ABDOMEN: Soft. Bowel sounds normal. No organomegaly. No abdominal bruits. Extremities: reveal no edema. No clubbing or cyanosis Neurologically awake, alert, oriented x3 with well-coordinated movements. No focal deficits noted Skin: No rash or skin lesions. Psychiatric: Coperative. Nonsuicidal Musculoskeletal: No joint swelling or deformity. Mild tenderness at the surgical site. - Labs CBC & Chem 7: 05/01/18 13:27 04/28/18 10:50 Labs: Abnormal Lab Results - Last 24 Hours (Table) 05/01/18 Range/Units 13:27 RBC 3.30 L (3.80-5.40) m/uL Hgb 10.3 L (11.4-16.0) gm/dL Hct 32.1 L (34.0-46.0) % Assessment and Plan Assessment: mechanical fall and right femoral neck fracture status post closed reduction with IM nail on 04/29/2018. Displaced, committed right femoral neck fracture. Possible COPD. No history of pulmonary function tests in the past. Not in exacerbation. Elevated blood pressure likely due to pain. Follow-up as an outpatient. Linear density in the left lung upper lobe. Outpatient follow-up with pulmonary was recommended. History of smoking quit 5 years ago DVT prophylaxis Plan: Patient will be continued on pain medications and bowel regimen. Encourage ambulation and incentive spirometry. Otherwise we'll continue the current management and follow closely. Further recommendations based on the clinical course. We will continue to follow with you.
[2018-05-02 07:42] VITALS: BP 119/68; PULSE 69; RESP 17; TEMP 98.3
[2018-05-02] MEDS: SODIUM CHLORIDE 0.9% 1,000 ML IV SCH (08:07)
[2018-05-02] MEDS: FAMOTIDINE 20 MG TAB PO SCH (08:10)
[2018-05-02] MEDS: ENOXAPARIN 40 MG/0.4 ML SYRINGE SQ SCH (08:10)
[2018-05-02] MEDS: MULTIVITAMINS, THERA 1 EACH TAB PO SCH (11:21)
[2018-05-02] MEDS: HYDROcodone/APAP 5-325MG 1 EACH TAB PO PRN (11:21)
[2018-05-02] MEDS ORDERED: MORPHINE ORAL SOLN 10 MG/5 ML CUP PO PRN (12:55)
--- NOTE | 2018-05-02 13:33 | P.PN ---
Subjective History of present illness, from medical records Patient is 67-year-old female with a known history of smoking quit about 5 years ago was brought to the ER by EMS status post fall. Patient says that she was at the shop and tripped over a wire and fell down on her right hip. Patient has been having severe pain since then and patient was given a dose of morphine sulfate by EMS. Denied any neck pain or headache. Denied any head injury. Denied any complaints of chest pain or shortness of breath. No complaints of dizziness or lightheadedness before or after the fall. No fever no chills. Denied any recent illnesses. No history of renal problems. No recent medical problems. No recent travel or sick contacts. X-ray of the hip showed displaced right femoral neck fracture. Chest x-ray showed COPD with by apical pleural thickening. There is a linear density within the left upper lobe which may be related to atelectasis or scar. Recommend short-term follow-up computed tomography scan. CT of the right hip showed comminuted, foreshortened, apical lateral angular intertrochanteric right hip fracture. No additional right pelvic fracture is seen. At least a grade 2 and 2 listhesis of the L5 on S1 particularly visualized. 04/29/2018 Patient underwent closed reduction with IM nailing today. Currently seems very drowsy. Otherwise denied any chest pain or shortness of breath. Pain is fairly controlled. No fever no chills. 04/30/2018 Patient says that his pain is fairly controlled. Was able to ambulate with support. No fever no chills. No headache or dizziness or lightheadedness. Hernandez catheter has been discontinued. Continued on PT OT 05/01/2018 Patient denied any new complaints today. Was able to ambulating support. Continued on PT OT. No complaints of fever or chills. Feels better today otherwise. No nausea vomiting or abdominal pain. Tolerating oral diet. No cough is from production. No headache or dizziness or worsening pain. Subjective 05/02/2018 Patient was lying in bed, she is postop day 3 for Closed reduction and internal fixation of right intertrochanteric femur fracture with intramedullary nail. Patient pain is controlled and she states is 0/10 in severity. Patient denies any other complaints. No chest pain or dyspnea. No abdominal pain. No change in urine or bowel habits. Tolerating diet well with no nausea vomiting. No fever. Patient has chest x-ray on admission: Shows COPD with by epical pleural thickening and there is a line near density within the left upper lobe which may be related to atelectasis or scar and they recommended short-term follow-up CAT scan by radiologist. Patient was updated and made aware of these chest x- ray findings, patient is a ex-smoker. Risks including but not limited to cancer as explained for the patient and she verbalized understanding and acceptance. Patient agrees to follow up with pulmonology clinic upon discharge and she asked medical staff to make appointments for her. Discussed with staff to make appointments for the patient Objective - Vital Signs Vital signs: Vital Signs Temp 98.3 F 05/02/18 07:37 Pulse 69 05/02/18 07:37 Resp 17 05/02/18 07:37 BP 119/68 05/02/18 07:37 Pulse Ox 94 L 05/02/18 07:37 Intake & Output 05/01/18 05/02/18 05/02/18 18:59 06:59 18:59 Intake Total 500 Output Total 200 Balance -200 500 Intake: Intake, IV Titration 200 Amount Sodium Chloride 0.9% 1, 200 000 ml @ 20 mls/hr IV . Q24H [facility] Rx#:[id number] Oral 300 Output: Urine 200 Uretheral (Hernandez) 200 Other: Voiding Method Indwelling Catheter Toilet Toilet # Voids 1 2 - Exam GENERAL: The patient is alert and oriented x3, not in any acute distress. Well developed, well nourished. HEENT: Pupils are round and equally reacting to light. EOMI. No scleral icterus. No conjunctival pallor. Normocephalic, atraumatic. No pharyngeal erythema. No thyromegaly. CARDIOVASCULAR: S1 and S2 present. No murmurs, rubs, or gallops. PULMONARY: Chest is clear to auscultation, no wheezing or crackles. ABDOMEN: Soft, nontender, nondistended, normoactive bowel sounds. No palpable organomegaly. MUSCULOSKELETAL: No joint swelling or deformity. -EXTREMITIES: No cyanosis, clubbing, or pedal edema. Left leg wound is closed and clean, no discharge or cellulitis NEUROLOGICAL: Gross neurological examination did not reveal any focal deficits. SKIN: No rashes. - Labs CBC & Chem 7: 05/01/18 13:27 04/28/18 10:50 Labs: Abnormal Lab Results - Last 24 Hours (Table) 05/01/18 Range/Units 13:27 RBC 3.30 L (3.80-5.40) m/uL Hgb 10.3 L (11.4-16.0) gm/dL Hct 32.1 L (34.0-46.0) % Assessment and Plan Assessment: mechanical fall and right femoral neck fracture status post closed reduction with IM nail on 04/29/2018. Abnormal chest x-ray: COPD with pleural thickening. Linear density in the left lung upper lobe. Outpatient follow-up with pulmonary was recommended. Patient is aware Possible COPD. No history of pulmonary function tests in the past. Not in exacerbation. Follow-up with pulmonary as an outpatient Elevated blood pressure likely due to pain. Follow-up as an outpatient. Currently is well controlled Linear density in the left lung upper lobe. Outpatient follow-up with pulmonary was recommended. History of smoking quit 5 years ago DVT prophylaxis and pain management as per primary surgical team Plan: Patient will be continued on pain medications and bowel regimen. Encourage ambulation and incentive spirometry. Otherwise we'll continue the current management and follow closely. Further recommendations based on the clinical course. We recommend patient follow up with PCP within one week, as well as with pulmonary team for her abnormal chest x-ray, although patient is asymptomatic. Discussed with the staff to make appointment for the patient upon her request. We will continue to follow with you. appointment has been made with pcp and pulmonary and pt is agreeable with them and their timing Thank you for consulting us, please feel free to contact us for any further clarification or questions.
--- NOTE | 2018-05-04 10:14 | P.DS ---
Providers Date of admission: 04/28/18 10:19 Expected date of discharge: 05/02/18 Attending physician: Jj Yan DO Consults: 04/28/18 10:17 Consult Physician Urgent Consulting Provider: Tung Quintana Reason/Comments: Medical clearance for surgery Do you want consulting provider notified?: Yes Primary care physician: Stated None - Discharge Diagnosis(es) (1) Intertrochanteric fracture of right hip Status: Acute Priority: Medium (2) Fall Status: Acute Hospital Course: This is a 67 year-old female who presented to the Emergency Department after a fall at work. X-rays revealed a displaced, right intertrochanteric femur fracture. The patient was admitted in preparation for surgical intervention. A preoperative evaluation was performed by the Internal Medicine team and she was deemed stable for surgery. On 04/29/18, the patient was taken to the operating room and the fracture was surgical stabilized with a cephalomedullary nail. The patient tolerated the procedure well and without adverse event. She was taken to recovery and subsequently returned to the floor. She had a routine postoperative course. She was placed on mechanical and chemoprophylaxis for DVTs. Her pain was managed with IV and oral analgesics. She participated with physical therapy and received instruction on gait training and ambulation safety. At time of discharge, she was tolerating a regular diet, pain was well- controlled, vitals signs were stable and she was deemed appropriate for discharge home. Pertinent Studies: Laboratory Tests 05/01/18 13:27 WBC 8.4 Hgb 10.3 L Hct 32.1 L Plt Count 197 Procedures: Cephalomedullary nailing of right intertrochanteric femur fracture Patient Condition at Discharge: Good Plan - Discharge Summary Discharge Rx Participant: No New Discharge Prescriptions: New HYDROcodone/APAP 5-325MG [[place] 5] 1 - 2 each PO Q4-6H PRN #60 tab PRN Reason: Pain Enoxaparin [Lovenox] 40 mg SQ DAILY #10 syringe Sennosides-Docusate Sodium [Senokot-S] 2 tab PO DAILY #30 tablet No Action Multivitamins, Thera [Multivitamin (formulary)] 1 tab PO DAILY Discharge Medication List Multivitamins, Thera [Multivitamin (formulary)] 1 tab PO DAILY 04/28/18 [History ] Enoxaparin [Lovenox] 40 mg SQ DAILY #10 syringe 05/02/18 [Rx] HYDROcodone/APAP 5-325MG [[place] 5] 1 - 2 each PO Q4-6H PRN #60 tab 05/02/18 [Rx] Sennosides-Docusate Sodium [Senokot-S] 2 tab PO DAILY #30 tablet 05/02/18 [Rx] Follow up Appointment(s)/Referral(s): Emily Marcial MD [REFERRING] - 05/10/18 1:00 pm (your new primary care physician please follow up regarding your health problems including abnormal cxr.) Ronnie Stafford DO [Doctor of Osteopathic Medicine] - 05/17/18 10:45 am [facility], [NON-STAFF] - Jj Yan DO [Medical Doctor] - 05/16/18 1:30 pm None,Stated [Primary Care Provider] - 1-2 days Patient Instructions/Handouts: Intramedullary Nailing (DC) Activity/Diet/Wound Care/Special Instructions: Weightbearing as tolerated with a walker Lovenox 10 days then Aspirin 325mg twice daily for 4 weeks. Use pain medication as directed or may switch to [id number]. Ok to shower. Do not soak in tubs or pools. No ointments or lotions to incision sites. Follow up with Dr. Jj Yan in 2 weeks. Walker to be delivered to bedside before discharge [facility] with questions or concerns Discharge Disposition: HOME WITH HOME HEALTH SERVICES
== END 2018-05-02 13:50 | disposition home health service (06) | DRG 482 ==
LOC: EC 08:30 → 4SSUR 10:19 → UNDODISIN 05-01 15:33
PROVIDERS: ADMIT Orthopaedic Surgery; ATTEND Orthopaedic Surgery
PROC: 0QS636Z Reposition Right Upper Femur with Intramedullary Internal Fixation Device, Percutaneous Approach (ICD-10-PCS; principal; 2018-04-29 13:00)
DX: S72.141A Displaced intertrochanteric fracture of right femur, initial encounter for closed fracture (principal); W01.0XXA Fall on same level from slipping, tripping and stumbling without subsequent striking against object, initial encounter; Z87.891 Personal history of nicotine dependence; J44.9 Chronic obstructive pulmonary disease, unspecified
CPT/HCPCS: 71045; 73501; 73502; 80053; 81003; 82550; 82553; 83735; 84484; 85025; 85610; 85730; 94760; 96374; 99285